=== PATIENT | female | born 1965 | race Caucasian/White ===

== ENCOUNTER 2023-05-03 16:16 | Inpatient (IN) | payer OTHER ==
[2023-05-03 16:23] VITALS: BMI 24.5
[2023-05-03] MEDS ORDERED: SODIUM CHLORIDE 0.9% 500 ML INFUS.BAG IV ONE (16:59)
[2023-05-03] MEDS ORDERED: ONDANSETRON 4 MG TABLET PO ONE (17:00)
[2023-05-03] MEDS ORDERED: morphine CARPU-JECT 4 MG/1 ML DISP.SYRIN IVPUSH ONE ×2 (17:01→20:38)
[2023-05-03] MEDS ORDERED: ONDANSETRON 4 MG/2 ML VIAL IVPUSH ONE ×2 (17:55→20:38)
[2023-05-03 17:56] LABS: HEMOGLOBIN 10.7 GM/dL (10.7-15.3); MCH 27.4 pg (25.7-33.7); MCHC 32.4 g/dl (32.0-36.0); MEAN CELL VOLUME 84.6 fl (80-96); MEAN PLT VOLUME 7.2 fl (7.5-11.1); PLATELET COUNT 255 10^3/uL (134-434); RDW 14.5 % (11.6-15.6); WHITE BLOOD COUNT 11.8 K/mm3 (4.0-10.0)
[2023-05-03] MEDS ORDERED: morphine SULFATE 4 MG/ML VIAL ONE ×2 (18:05→20:50)
[2023-05-03] MEDS ORDERED: ONDANSETRON 4 MG/2 ML VIAL ONE ×2 (18:05→20:50)
[2023-05-03 18:12] LABS: POTASSIUM 3.9 mmol/L (3.5-5.1)
[2023-05-03 18:14] LABS: CALCIUM 8.4 mg/dL (8.5-10.1)
[2023-05-03 18:15] LABS: BLOOD UREA NITROGEN 12.7 mg/dL (7-18)
[2023-05-03 18:18] LABS: CREATININE 0.6 mg/dL (0.55-1.3)
[2023-05-03 18:19] LABS: BILIRUBIN,TOTAL 0.8 mg/dL (0.2-1); TOT PROT 6.1 g/dl (6.4-8.2)
[2023-05-03 18:45] LABS: ANISOCYTOSIS 1+; MACROCYTOSIS 0; PLATELET ESTIMATE NORMAL
[2023-05-03] MEDS ORDERED: CEFOXITIN SODIUM 2 GM in DEXTROSE 5%-WATER - 100 ML IVPB ONE (20:33)
[2023-05-03] MEDS ORDERED: LACTATED RINGERS SOLUTION 1,000 ML/1,000 ML INFUS.BAG IV SCH (22:45)
[2023-05-04] MEDS: AMPICILLIN NA/SULBACTAM NA 3 GM in SODIUM CHLORIDE 100 ML IVPB SCH ×5 (03:40→21:40)
[2023-05-04] MEDS: ACETAMINOPHEN 1000 MG/100 ML BAG IVPB PRN ×2 (04:41→12:48)
[2023-05-04] MEDS: ONDANSETRON 4 MG/2 ML VIAL IVPUSH PRN ×2 (05:45→12:48)
[2023-05-04] MEDS ORDERED: LEVOTHYROXINE NA 150 MCG TABLET PO SCH (07:00)
[2023-05-04 07:46] LABS: BASO % 0.2 % (0-2.0); EOS % 0.6 % (0-4.5); HEMATOCRIT 28.9 % (32.4-45.2); HEMOGLOBIN 9.3 GM/dL (10.7-15.3); LYMPH % 6.9 % (8-40); MCH 27.8 pg (25.7-33.7); MCHC 32.2 g/dl (32.0-36.0); MEAN CELL VOLUME 86.4 fl (80-96); MEAN PLT VOLUME 7.8 fl (7.5-11.1); MONO % 7.3 % (3.8-10.2); PLATELET COUNT 228 10^3/uL (134-434); RBC 3.34 M/mm3 (3.60-5.2); RDW 14.2 % (11.6-15.6); WHITE BLOOD COUNT 12.9 K/mm3 (4.0-10.0)
[2023-05-04 07:52] LABS: INR 1.11 (0.83-1.09); PROTHROMBIN TIME (PATIENT) 12.9 SEC (9.7-13.0)
[2023-05-04 08:07] LABS: MAGNESIUM 1.9 mg/dL (1.8-2.4)
[2023-05-04 08:10] LABS: PHOSPHOROUS 2.7 mg/dL (2.5-4.9)
[2023-05-04] MEDS ORDERED: DEXAMETHASONE SOD PHOSPHATE 4 MG/1 ML VIAL ONE (11:32)
[2023-05-04] MEDS ORDERED: ROCURONIUM BROMIDE 50 MG/5 ML SYRINGE ONE ×2 (11:32→14:56)
[2023-05-04] MEDS ORDERED: PROPOFOL 20 ML ONE (11:32)
[2023-05-04] MEDS ORDERED: LIDOCAINE HCL/PF 2% SDV 5ML VIAL ONE (11:32)
[2023-05-04] MEDS ORDERED: ONDANSETRON 4 MG/2 ML VIAL ONE (11:32)
[2023-05-04] MEDS ORDERED: KETOROLAC TROMETHAMINE 30 MG/1 ML VIAL ONE (11:32)
[2023-05-04] MEDS ORDERED: MIDAZOLAM HCL 2 MG/2 ML SINGLE DOSE VIAL ONE (11:34)
[2023-05-04] MEDS ORDERED: ACETAMINOPHEN 1000 MG/100 ML BAG IVPB ONE (12:41)
[2023-05-04] MEDS ORDERED: ONDANSETRON 4 MG/2 ML VIAL IVPUSH PRN (12:42)
[2023-05-04] MEDS ORDERED: LACTATED RINGERS SOLUTION 1,000 ML IV SCH (12:45)
[2023-05-04] MEDS ORDERED: BUPIVACAINE HCL/PF 0.25% (2.5MG/ML) 10 ML VIAL ONE (13:00)
[2023-05-04] MEDS ORDERED: SUGAMMADEX SODIUM 200 MG/2 ML VIAL ONE (13:44)
[2023-05-04] MEDS ORDERED: BUPIVACAINE HCL/PF 2.5 MG/ML - 30 ML VIAL IJ ONE (14:08)
[2023-05-04] MEDS ORDERED: BISACODYL 10 MG SUPP.RECT PR PRN (15:48)
[2023-05-04] MEDS ORDERED: SENNOSIDES 8.6MG TABLET (FP) PO PRN (15:48)
[2023-05-04] MEDS ORDERED: oxyCODONE HCL 5 MG TABLET PO PRN (16:44)
[2023-05-04] MEDS: SODIUM CHLORIDE 1,000 ML IV SCH ×2 (17:45→18:19)
[2023-05-04] MEDS: oxyCODONE HCL 5 MG TABLET PO PRN (22:36)
[2023-05-05] MEDS: AMPICILLIN NA/SULBACTAM NA 3 GM in SODIUM CHLORIDE 100 ML IVPB SCH ×4 (02:38→21:43)
[2023-05-05] MEDS: SODIUM CHLORIDE 1,000 ML IV SCH (04:47)
[2023-05-05] MEDS: ACETAMINOPHEN 500 MG TABLET (FP) PO PRN ×3 (04:48→21:56)
[2023-05-05] MEDS: LEVOTHYROXINE NA 150 MCG TABLET PO SCH (06:37)
[2023-05-05] MEDS: ONDANSETRON 4 MG/2 ML VIAL IVPUSH PRN (06:38)
[2023-05-05 09:35] LABS: HEMATOCRIT 30.7 % (32.4-45.2); HEMOGLOBIN 9.9 GM/dL (10.7-15.3); MCH 27.6 pg (25.7-33.7); MCHC 32.2 g/dl (32.0-36.0); MEAN CELL VOLUME 85.7 fl (80-96); MEAN PLT VOLUME 7.6 fl (7.5-11.1); PLATELET COUNT 258 10^3/uL (134-434); RBC 3.58 M/mm3 (3.60-5.2); RDW 14.3 % (11.6-15.6); WHITE BLOOD COUNT 11.4 K/mm3 (4.0-10.0)
[2023-05-05 09:58] LABS: POTASSIUM 3.5 mmol/L (3.5-5.1)
[2023-05-05] MEDS ORDERED: POLYETHYLENE GLYCOL (HEALTHYLAX) 3350 17 GM PACKET PO SCH (10:00)
[2023-05-05 10:17] LABS: BLOOD UREA NITROGEN 10.5 mg/dL (7-18); CALCIUM 8.6 mg/dL (8.5-10.1)
[2023-05-05 10:21] LABS: CREATININE 0.7 mg/dL (0.55-1.3)
[2023-05-05] MEDS ORDERED: SENNOSIDES/DOCUSATE COMBO (SENNA PLUS) TABLET (UD) PO PRN (14:56)
[2023-05-05] MEDS: oxyCODONE HCL 5 MG TABLET PO PRN (22:49)
[2023-05-06 01:09] VITALS: RESP 18
[2023-05-06] MEDS: AMPICILLIN NA/SULBACTAM NA 3 GM in SODIUM CHLORIDE 100 ML IVPB SCH ×2 (02:55→08:50)
[2023-05-06] MEDS: LEVOTHYROXINE NA 150 MCG TABLET PO SCH (06:27)
[2023-05-06] MEDS: oxyCODONE HCL 5 MG TABLET PO PRN (06:31)
[2023-05-06] MEDS: ACETAMINOPHEN 500 MG TABLET (FP) PO PRN ×3 (08:49→16:54)
[2023-05-06 09:31] LABS: HEMATOCRIT 30.9 % (32.4-45.2); HEMOGLOBIN 9.8 GM/dL (10.7-15.3); MCH 27.2 pg (25.7-33.7); MCHC 31.8 g/dl (32.0-36.0); MEAN CELL VOLUME 85.4 fl (80-96); MEAN PLT VOLUME 7.4 fl (7.5-11.1); PLATELET COUNT 298 10^3/uL (134-434); RBC 3.62 M/mm3 (3.60-5.2); RDW 14.3 % (11.6-15.6); WHITE BLOOD COUNT 12.4 K/mm3 (4.0-10.0)
[2023-05-06 09:53] LABS: POTASSIUM 3.2 mmol/L (3.5-5.1)
[2023-05-06 10:01] LABS: CALCIUM 8.6 mg/dL (8.5-10.1)
[2023-05-06 10:02] LABS: BLOOD UREA NITROGEN 8.2 mg/dL (7-18)
[2023-05-06 10:05] LABS: CREATININE 0.7 mg/dL (0.55-1.3)
[2023-05-06] MEDS: POLYETHYLENE GLYCOL (HEALTHYLAX) 3350 17 GM PACKET PO SCH (10:14)
[2023-05-06] MEDS ORDERED: KCL 20 MEQ PREMIX BAG 20 MEQ/100 ML INFUS.BAG IVPB SCH (10:30)
[2023-05-06 10:41] LABS: MAGNESIUM 1.7 mg/dL (1.8-2.4)
[2023-05-06] MEDS ORDERED: MAGNESIUM SULFATE IN WATER 2 GM/50 ML IVPB IVPB ONE (11:15)
[2023-05-06] MEDS: KCL 10 MEQ IVPB 10 MEQ/100 ML INFUS.BAG IVPB SCH ×2 (12:15→12:40)
[2023-05-06] MEDS ORDERED: POTASSIUM CHLORIDE TABS 20 MEQ TABLET.ER (FP) PO SCH (13:30)
[2023-05-06] MEDS: LIDOCAINE 4% PATCH TP SCH (16:29)
[2023-05-06] MEDS: AMOX TR/POT CLAV 875MG/125MG TABLETS (FP) PO SCH (16:54)
[2023-05-06 18:02] LABS: PH,URINE 7.5 (5.0-8.0); URINE APPEARANCE CLEAR; URINE BILIRUBIN NEGATIVE (NEGATIVE); URINE COLOR YELLOW; URINE GLUCOSE (UA) NEGATIVE (NEGATIVE); URINE KETONE NEGATIVE (NEGATIVE); URINE LEUK ESTERASE NEGATIVE (NEGATIVE); URINE NITRITE NEGATIVE (NEGATIVE); URINE PROTEIN NEGATIVE (NEGATIVE)
[2023-05-06] MEDS: HEPARIN NA (PORCINE) 5,000 UNITS/ML 1ML VIAL SQ SCH (21:35)
[2023-05-06] MEDS ORDERED: LIDOCAINE PATCH REMOVAL MC SCH (22:00)
[2023-05-07] MEDS: oxyCODONE HCL 5 MG TABLET PO PRN (00:52)
[2023-05-07] MEDS: ONDANSETRON 4 MG/2 ML VIAL IVPUSH PRN ×2 (00:54→08:54)
[2023-05-07 05:55] VITALS: BP 128/56; PULSE 96; TEMP 99.2
[2023-05-07] MEDS: LEVOTHYROXINE NA 150 MCG TABLET PO SCH (06:12)
[2023-05-07] MEDS: HEPARIN NA (PORCINE) 5,000 UNITS/ML 1ML VIAL SQ SCH (06:13)
[2023-05-07] MEDS: ACETAMINOPHEN 500 MG TABLET (FP) PO PRN (06:28)
[2023-05-07 08:39] LABS: BASO % 0.3 % (0-2.0); EOS % 0.9 % (0-4.5); HEMATOCRIT 28.3 % (32.4-45.2); HEMOGLOBIN 9.2 GM/dL (10.7-15.3); LYMPH % 15.5 % (8-40); MCH 27.8 pg (25.7-33.7); MCHC 32.6 g/dl (32.0-36.0); MEAN CELL VOLUME 85.1 fl (80-96); MEAN PLT VOLUME 7.2 fl (7.5-11.1); MONO % 13.1 % (3.8-10.2); NEUT % 70.2 % (42.8-82.8); PLATELET COUNT 280 10^3/uL (134-434); RBC 3.33 M/mm3 (3.60-5.2); RDW 14.2 % (11.6-15.6); WHITE BLOOD COUNT 10.3 K/mm3 (4.0-10.0)
[2023-05-07] MEDS: AMOX TR/POT CLAV 875MG/125MG TABLETS (FP) PO SCH (08:52)
[2023-05-07 08:53] LABS: POTASSIUM 3.2 mmol/L (3.5-5.1)
[2023-05-07 08:58] LABS: BLOOD UREA NITROGEN 3.8 mg/dL (7-18)
[2023-05-07 09:00] LABS: CALCIUM 7.7 mg/dL (8.5-10.1); CREATININE 0.4 mg/dL (0.55-1.3); MAGNESIUM 1.8 mg/dL (1.8-2.4)
[2023-05-07 09:02] LABS: BILIRUBIN,TOTAL 0.4 mg/dL (0.2-1); TOT PROT 4.8 g/dl (6.4-8.2)
[2023-05-07] MEDS: LIDOCAINE 4% PATCH TP SCH (09:06)
[2023-05-07] MEDS: POLYETHYLENE GLYCOL (HEALTHYLAX) 3350 17 GM PACKET PO SCH (09:06)
[2023-05-07] MEDS ORDERED: MAGNESIUM OXIDE 400 MG TABLET (FP) PO ONE (09:07)
[2023-05-07] MEDS ORDERED: POTASSIUM CHLORIDE TABS 20 MEQ TABLET.ER (FP) PO SCH (10:00)
== END 2023-05-07 11:58 | disposition home or self-care (01) | DRG 399 ==
LOC: JER 16:16 → JERBED 20:50 → J7W 22:09
PROVIDERS: ADMIT Internal Medicine; ATTEND Nurse Practitioner Acute Care
PROC: 0DTJ4ZZ Resection of Appendix, Percutaneous Endoscopic Approach (ICD-10-PCS; principal; 2023-05-04 13:00)
DX: K35.33 Acute appendicitis with perforation, localized peritonitis, and gangrene, with abscess (principal); E03.9 Hypothyroidism, unspecified; E87.6 Hypokalemia; R10.31 Right lower quadrant pain
CPT/HCPCS: 36415; 74177-TC; 80048; 80053; 81003; 82150; 83690; 83735; 84100; 84484; 85025; 85027; 85610; 86850; 86900; 86901; 87040; 88304-TC; 93005; 93010; 94760; 99285-25; J1644; Q9967

== ENCOUNTER 2023-05-18 09:41 | Inpatient (IN) | payer OTHER ==
[2023-05-18 09:47] VITALS: BMI 24.0
[2023-05-18] MEDS ORDERED: ACETAMINOPHEN 1000 MG/100 ML BAG IVPB ONE (10:03)
[2023-05-18 11:04] LABS: HEMATOCRIT 28.6 % (32.4-45.2); HEMOGLOBIN 9.5 GM/dL (10.7-15.3); MCH 27.6 pg (25.7-33.7); MCHC 33.3 g/dl (32.0-36.0); MEAN CELL VOLUME 82.9 fl (80-96); MEAN PLT VOLUME 6.2 fl (7.5-11.1); PLATELET COUNT 921 10^3/uL (134-434); RBC 3.44 M/mm3 (3.60-5.2); RDW 14.1 % (11.6-15.6); WHITE BLOOD COUNT 17.2 K/mm3 (4.0-10.0)
[2023-05-18] MEDS ORDERED: ACETAMINOPHEN INJECTION 100 ML IVPB ONE (11:05)
[2023-05-18 11:11] LABS: INR 1.48 (0.83-1.09); PROTHROMBIN TIME (PATIENT) 17.1 SEC (9.7-13.0)
[2023-05-18 11:13] LABS: ACTIVATED PTT 28.6 SECONDS (25.2-36.5)
[2023-05-18 11:30] LABS: POTASSIUM 3.9 mmol/L (3.5-5.1)
[2023-05-18 11:32] LABS: ALBUMIN 2.4 g/dl (3.4-5.0); CALCIUM 8.9 mg/dL (8.5-10.1)
[2023-05-18 11:33] LABS: BLOOD UREA NITROGEN 10.4 mg/dL (7-18)
[2023-05-18 11:35] LABS: CREATININE 0.7 mg/dL (0.55-1.3)
[2023-05-18 11:37] LABS: BILIRUBIN,TOTAL 0.2 mg/dL (0.2-1); TOT PROT 6.5 g/dl (6.4-8.2)
[2023-05-18] MEDS ORDERED: PIPERACILLIN/TAZOB 3.375 GM 3.375 GM in DEXTROSE 5%-WATER - 50 ML IVPB ONE (11:57)
[2023-05-18 12:09] LABS: ANISOCYTOSIS 0; MACROCYTOSIS 0
[2023-05-18] MEDS ORDERED: PIPERACILLIN/TAZOB 3.375 GM 3.375 GM/50 ML BAG IVPB ONE (12:11)
[2023-05-18] MEDS ORDERED: SODIUM CHLORIDE 1,000 ML IV STA (12:18)
[2023-05-18] MEDS ORDERED: ONDANSETRON 4 MG TABLET PO PRN (12:27)
[2023-05-18] MEDS ORDERED: KETOROLAC TROMETHAMINE 15 MG/ML VIAL ONE (12:47)
[2023-05-18] MEDS: KETOROLAC TROMETHAMINE 15 MG/ML VIAL IVPUSH PRN ×2 (13:05→23:28)
[2023-05-18] MEDS ORDERED: ONDANSETRON *ODT* 4 MG TABLET ONE (15:35)
[2023-05-18] MEDS: LACTATED RINGERS SOLUTION 1,000 ML IV SCH (16:00)
[2023-05-18] MEDS ORDERED: PIPERACILLIN/TAZOB 3.375 GM 3.375 GM in DEXTROSE 5%-WATER - 50 ML IVPB SCH (18:00)
[2023-05-18] MEDS: PIPERACILLIN/TAZOB 4.5 GM 4.5 GM in DEXTROSE 5%-WATER 100 ML IVPB SCH (18:21)
[2023-05-18] MEDS: ACETAMINOPHEN 325 MG TABLET (FP) PO PRN (18:55)
[2023-05-19] MEDS: PIPERACILLIN/TAZOB 4.5 GM 4.5 GM in DEXTROSE 5%-WATER 100 ML IVPB SCH ×3 (01:49→17:20)
[2023-05-19] MEDS: ACETAMINOPHEN 325 MG TABLET (FP) PO PRN ×2 (02:00→17:20)
[2023-05-19] MEDS ORDERED: PIPERACILLIN/TAZOB 3.375 GM 3.375 GM in DEXTROSE 5%-WATER - 50 ML IVPB SCH (02:00)
[2023-05-19] MEDS: LACTATED RINGERS SOLUTION 1,000 ML IV SCH ×2 (06:18→14:43)
[2023-05-19] MEDS ORDERED: LEVOTHYROXINE NA 150 MCG TABLET PO SCH (07:00)
[2023-05-19 10:06] LABS: BASO % 0.2 % (0-2.0); EOS % 0.3 % (0-4.5); HEMATOCRIT 26.4 % (32.4-45.2); LYMPH % 9.1 % (8-40); MCH 28.3 pg (25.7-33.7); MCHC 34.1 g/dl (32.0-36.0); MEAN PLT VOLUME 6.6 fl (7.5-11.1); MONO % 8.9 % (3.8-10.2); NEUT % 81.5 % (42.8-82.8); PLATELET COUNT 721 10^3/uL (134-434); RBC 3.18 M/mm3 (3.60-5.2); RDW 14.5 % (11.6-15.6); WHITE BLOOD COUNT 13.1 K/mm3 (4.0-10.0)
[2023-05-19 10:07] LABS: INR 1.43 (0.83-1.09); PROTHROMBIN TIME (PATIENT) 16.5 SEC (9.7-13.0)
[2023-05-19 10:10] LABS: ACTIVATED PTT 26.3 SECONDS (25.2-36.5)
[2023-05-19 10:43] LABS: BLOOD UREA NITROGEN 7.7 mg/dL (7-18); CALCIUM 8.4 mg/dL (8.5-10.1)
[2023-05-19 10:46] LABS: PHOSPHOROUS 3.8 mg/dL (2.5-4.9)
[2023-05-19 10:47] LABS: CREATININE 0.6 mg/dL (0.55-1.3)
[2023-05-19 10:48] LABS: BILIRUBIN,TOTAL 0.2 mg/dL (0.2-1); TOT PROT 5.4 g/dl (6.4-8.2)
[2023-05-19] MEDS ORDERED: MIDAZOLAM HCL 2 MG/2 ML SINGLE DOSE VIAL ONE ×2 (11:57→14:07)
[2023-05-19] MEDS: KETOROLAC TROMETHAMINE 15 MG/ML VIAL IVPUSH PRN (12:01)
[2023-05-19] MEDS ORDERED: FENTANYL CITRATE/PF 50 MCG/ML VIAL ONE ×2 (14:07→15:17)
[2023-05-19] MEDS ORDERED: cefTRIAXone SODIUM 1 GM VIAL ONE (14:07)
[2023-05-19] MEDS ORDERED: PANTOPRAZOLE SODIUM 40 MG VIAL IVPUSH SCH (15:30)
[2023-05-19] MEDS ORDERED: LACTATED RINGERS SOLUTION 1,000 ML/1,000 ML INFUS.BAG IV STA ×2 (20:32→23:36)
[2023-05-20] MEDS: PIPERACILLIN/TAZOB 4.5 GM 4.5 GM in DEXTROSE 5%-WATER 100 ML IVPB SCH ×3 (03:38→17:22)
[2023-05-20] MEDS: LEVOTHYROXINE SODIUM 100 MCG 5 ML VIAL IVPUSH SCH (06:22)
[2023-05-20] MEDS: PANTOPRAZOLE SODIUM 40 MG VIAL IVPUSH SCH (09:44)
[2023-05-20] MEDS ORDERED: PANTOPRAZOLE SODIUM 40 MG VIAL IVPUSH SCH (10:00)
[2023-05-20] MEDS: ENOXAPARIN NA (PORCINE) 40 MG/0.4 ML DISP.SYRIN SQ SCH (10:56)
[2023-05-20 11:42] LABS: BASO % 0.3 % (0-2.0); EOS % 0.6 % (0-4.5); HEMATOCRIT 26.7 % (32.4-45.2); HEMOGLOBIN 8.7 GM/dL (10.7-15.3); LYMPH % 14.6 % (8-40); MCH 27.3 pg (25.7-33.7); MCHC 32.6 g/dl (32.0-36.0); MEAN CELL VOLUME 83.8 fl (80-96); MEAN PLT VOLUME 6.5 fl (7.5-11.1); MONO % 6.6 % (3.8-10.2); NEUT % 77.9 % (42.8-82.8); PLATELET COUNT 760 10^3/uL (134-434); RBC 3.18 M/mm3 (3.60-5.2); RDW 14.3 % (11.6-15.6); WHITE BLOOD COUNT 13.4 K/mm3 (4.0-10.0)
[2023-05-20 11:44] LABS: POTASSIUM 4.3 mmol/L (3.5-5.1)
[2023-05-20 11:52] LABS: ALBUMIN 2.1 g/dl (3.4-5.0); CREATININE 0.6 mg/dL (0.55-1.3)
[2023-05-20 11:53] LABS: BILIRUBIN,TOTAL 0.2 mg/dL (0.2-1); CALCIUM 8.5 mg/dL (8.5-10.1); TOT PROT 5.9 g/dl (6.4-8.2)
[2023-05-20 13:03] VITALS: RESP 18
[2023-05-20] MEDS: ACETAMINOPHEN 325 MG TABLET (FP) PO PRN (23:31)
[2023-05-21] MEDS: PIPERACILLIN/TAZOB 4.5 GM 4.5 GM in DEXTROSE 5%-WATER 100 ML IVPB SCH ×3 (01:20→18:27)
[2023-05-21] MEDS: LEVOTHYROXINE SODIUM 100 MCG 5 ML VIAL IVPUSH SCH (06:07)
[2023-05-21] MEDS: ENOXAPARIN NA (PORCINE) 40 MG/0.4 ML DISP.SYRIN SQ SCH (09:38)
[2023-05-21] MEDS: PANTOPRAZOLE SODIUM 40 MG VIAL IVPUSH SCH (09:39)
[2023-05-21 11:15] LABS: HEMATOCRIT 26.4 % (32.4-45.2); HEMOGLOBIN 8.7 GM/dL (10.7-15.3); MCH 27.7 pg (25.7-33.7); MEAN CELL VOLUME 83.8 fl (80-96); MEAN PLT VOLUME 6.5 fl (7.5-11.1); PLATELET COUNT 681 10^3/uL (134-434); RBC 3.15 M/mm3 (3.60-5.2); RDW 14.4 % (11.6-15.6); WHITE BLOOD COUNT 8.9 K/mm3 (4.0-10.0)
[2023-05-21 11:19] LABS: POTASSIUM 3.8 mmol/L (3.5-5.1)
[2023-05-21 11:55] LABS: BLOOD UREA NITROGEN 5.2 mg/dL (7-18); CALCIUM 8.7 mg/dL (8.5-10.1); TOT PROT 5.8 g/dl (6.4-8.2)
[2023-05-21 11:56] LABS: ALBUMIN 2.1 g/dl (3.4-5.0); CREATININE 0.6 mg/dL (0.55-1.3)
[2023-05-21 11:57] LABS: BILIRUBIN,TOTAL 0.1 mg/dL (0.2-1)
[2023-05-21 13:36] LABS: ANISOCYTOSIS 0; HELMET CELLS 0; HOWELL-JOLLY BODIES 0; MACROCYTOSIS 0; OVALOCYTE 0; ROULEAU 0; SICKELED CELLS 0; TARGET CELLS 0; TEAR DROP CELLS 0; TOXIC GRANULATION 0
[2023-05-22] MEDS: PIPERACILLIN/TAZOB 4.5 GM 4.5 GM in DEXTROSE 5%-WATER 100 ML IVPB SCH ×2 (01:10→09:56)
[2023-05-22] MEDS: LEVOTHYROXINE SODIUM 100 MCG 5 ML VIAL IVPUSH SCH (06:17)
[2023-05-22 09:41] LABS: HEMOGLOBIN 9.5 GM/dL (10.7-15.3); MCH 28.2 pg (25.7-33.7); MCHC 33.9 g/dl (32.0-36.0); MEAN CELL VOLUME 83.2 fl (80-96); MEAN PLT VOLUME 6.4 fl (7.5-11.1); PLATELET COUNT 760 10^3/uL (134-434); RBC 3.36 M/mm3 (3.60-5.2); RDW 14.5 % (11.6-15.6); WHITE BLOOD COUNT 8.1 K/mm3 (4.0-10.0)
[2023-05-22] MEDS: ENOXAPARIN NA (PORCINE) 40 MG/0.4 ML DISP.SYRIN SQ SCH (09:47)
[2023-05-22] MEDS: PANTOPRAZOLE SODIUM 40 MG VIAL IVPUSH SCH (09:47)
[2023-05-22 10:03] LABS: POTASSIUM 4.2 mmol/L (3.5-5.1)
[2023-05-22 10:15] LABS: CREATININE 0.5 mg/dL (0.55-1.3)
[2023-05-22 10:21] LABS: ALBUMIN 2.5 g/dl (3.4-5.0)
[2023-05-22 10:24] LABS: BLOOD UREA NITROGEN 5.5 mg/dL (7-18); CALCIUM 8.9 mg/dL (8.5-10.1)
[2023-05-22 10:26] LABS: BILIRUBIN,TOTAL 0.2 mg/dL (0.2-1); TOT PROT 6.2 g/dl (6.4-8.2)
[2023-05-22 10:33] LABS: ANISOCYTOSIS 0; HELMET CELLS 0; HOWELL-JOLLY BODIES 0; MACROCYTOSIS 0; OVALOCYTE 0; ROULEAU 0; SICKELED CELLS 0; TARGET CELLS 0; TEAR DROP CELLS 0; TOXIC GRANULATION 0
[2023-05-22 13:13] VITALS: BP 125/75; PULSE 78; TEMP 98
== END 2023-05-22 16:30 | disposition home or self-care (01) | DRG 862 ==
LOC: JER 09:41 → JERBED 10:09 → J5S 17:23
PROVIDERS: ADMIT Internal Medicine
PROC: 0W9G30Z Drainage of Peritoneal Cavity with Drainage Device, Percutaneous Approach (ICD-10-PCS; principal; 2023-05-19)
DX: T81.49XA Infection following a procedure, other surgical site, initial encounter (principal); K65.1 Peritoneal abscess; E03.9 Hypothyroidism, unspecified; K21.9 Gastro-esophageal reflux disease without esophagitis; Y83.8 Other surgical procedures as the cause of abnormal reaction of the patient, or of later complication, without mention of misadventure at the time of the procedure; Y92.9 Unspecified place or not applicable
CPT/HCPCS: 36415; 49406; 80053; 83540; 83550; 83735; 84100; 84439; 84443; 85025; 85045; 85610; 85730; 86850; 86900; 86901; 87040; 87070; 87075; 87102; 87116; 87205; 87206; 87210; 93005; 93010; 94010; 99285-25; J0131